=== PATIENT | female | born 2000 ===

== ENCOUNTER 2022-11-14 16:03 | Emergency (ER) | payer OTHER ==
[2022-11-14 18:01] LABS: ESTIMATED GFR 125 mL/min (>60)
[2022-11-14 18:45] LABS: ACETAMINOPHEN < 2 ug/mL (<2)
== END 2022-11-14 18:15 | disposition left against medical advice (07) ==
LOC: FB.ED 16:03
DX: F29 Unspecified psychosis not due to a substance or known physiological condition (principal); R45.851 Suicidal ideations; Z88.1 Allergy status to other antibiotic agents
CPT/HCPCS: 36415; 80053; 80143; 80179; 80307; 81001; 81025; 84443; 85025; 99283; 99284

== ENCOUNTER 2023-10-19 21:30 | Emergency (ER) | payer OTHER ==
[2023-10-19] MEDS ORDERED: Sodium Chloride 0.9% 10 ML Syringe FLUSH PRN (22:08)
[2023-10-19 22:19] LABS: BASOPHILS PERCENT AUTO 0.4 % (0.2-1.5); EOSINOPHILS PERCENT AUTO 0.4 % (0.6-8.1); HEMATOCRIT 43.1 % (34.2-48.2); HEMOGLOBIN 14.6 g/dL (11.4-15.5); LYMPHOCYTES ABSOLUTE AUTO 2.6 x10-3/uL (1.0-4.4); LYMPHOCYTES PERCENT AUTO 21.8 % (18.4-52.1); MEAN CORPUSCULAR HEMOGLOBIN 30.1 pg (23.9-33.9); MEAN CORPUSCULAR VOLUME 88.6 fL (76.7-100.5); MEAN PLATELET VOLUME 8.7 fL (7.1-12.4); MONOCYTES ABSOLUTE AUTO 0.8 x10-3/uL (0.3-1.0); MONOCYTES PERCENT AUTO 6.9 % (4.4-15.7); NEUTROPHILS ABSOLUTE AUTO 8.3 x10-3/uL (1.5-6.3); NEUTROPHILS PERCENT AUTO 70.5 % (30.8-76.2); PLATELET COUNT,PLT 244 x10(3)uL (151-488); RED BLOOD CELL COUNT 4.87 x10(6)uL (3.60-5.20); RED CELL DISTRIBUTION WIDTH 12.8 % (12.3-16.5); WHITE BLOOD CELL COUNT,WBC 11.8 x10-3/uL (3.0-10.3)
[2023-10-19 22:22] LABS: BASE EXCESS VENOUS,POC -3 mmol/L (-2 - 3+); PCO2 VENOUS,POC 37 mmHg (41-51); PH VENOUS,POC 7.37 pH Units (7.32-7.43)
[2023-10-19 22:24] LABS: BLOOD UREA NITROGEN,BUN 11 mg/dL (7-18); BUN/CREATININE RATIO 18.3 (9-20); CALCIUM 9.8 mg/dL (8.6-10.2); CARBON DIOXIDE,CO2 25 mmol/L (21-32); CHLORIDE,CL 102 mmol/L (100-110); CREATININE 0.6 mg/dL (0.55-1.02); ESTIMATED GFR 128 mL/min (>60); GLUCOSE RANDOM 106 mg/dL (80-116); POTASSIUM,K 3.3 mmol/L (3.5-5.3); SODIUM,NA 139 mmol/L (135-145)
[2023-10-19 22:35] LABS: BILIRUBIN,URINE NEGATIVE (NEGATIVE); GLUCOSE,URINE NORMAL (NORMAL); KETONES,URINE NEGATIVE (NEGATIVE); LEUKOCYTE ESTERASE,URINE NEGATIVE (NEGATIVE); NITRITE,URINE NEGATIVE (NEGATIVE); OCCULT BLOOD,URINE NEGATIVE (NEGATIVE); PROTEIN,URINE NEGATIVE (NEGATIVE); UROBILINOGEN,URINE NORMAL (NEGATIVE)
[2023-10-19 22:39] LABS: AMORPHOUS SEDIMENT,URINE FEW; AMPHETAMINES SCREEN, URINE NEGATIVE (NEGATIVE); APPEARANCE,URINE CLEAR (CLEAR); BACTERIA,URINE RARE (NS); BARBITURATE SCREEN,URINE POSITIVE (NEGATIVE); BENZODIAZEPINES SCREEN,URINE NEGATIVE (NEGATIVE); COLOR,URINE YELLOW (YELLOW); METHADONE SCREEN, URINE NEGATIVE (NEGATIVE); METHAMPHETAMINE SCREEN, URINE NEGATIVE (NEGATIVE); OXYCODONE SCREEN,URINE NEGATIVE (NEGATIVE); RBC,URINE 0-5 (0-5); SQUAMOUS EPITHELIAL CELLS,UR OCCASIONAL (NS,R,O); THC SCREEN,URINE POSITIVE (NEGATIVE); WBC,URINE 0-5 (0-5)
[2023-10-19 22:39] LABS: A/G RATIO 1.1; ALANINE AMINOTRANSFERASE,ALT 77 U/L (12-36); ALBUMIN 4.5 g/dL (3.5-5.2); ALKALINE PHOSPHATASE 66 IU/L (56-112); ASPARTATE AMNIOTRANSFERASE,AST 70 IU/L (5-25); MAGNESIUM 2.3 mg/dL (1.8-2.5); PROTEIN TOTAL,TP 8.5 g/dL (6.0-8.0); SALICYLATE 2.6 mg/dL (<2.8)
[2023-10-19 22:40] LABS: BUPRENORPHINE SCREEN,URINE NEGATIVE (NEGATIVE)
[2023-10-19 22:42] LABS: ACETAMINOPHEN 52 ug/mL (<2)
[2023-10-19] MEDS ORDERED: Sodium Chloride 0.9% 1,000 ML IV SCH (23:00)
[2023-10-19 23:07] LABS: INR 0.98 (1.00-1.24); PROTHROMBIN TIME 10.2 sec (9.0-11.1)
[2023-10-20] MEDS ORDERED: SODIUM CHLORIDE 0.9% IV ONE (00:15)
[2023-10-20] MEDS ORDERED: ACETYLCYSTEINE IV ONE (00:15)
[2023-10-20] MEDS: Sodium Chloride 0.9% 1,000 ML IV ONE (01:00)
[2023-10-20] MEDS: ACETYLCYSTEINE IV ONE ×4 (01:55→03:34)
[2023-10-20] MEDS: SODIUM CHLORIDE 0.9% IV ONE ×4 (01:55→03:34)
== END 2023-10-20 03:25 ==
LOC: MERGE 21:30 → FB.ED 21:30
DX: T39.1X2A Poisoning by 4-Aminophenol derivatives, intentional self-harm, initial encounter (principal); G93.40 Encephalopathy, unspecified; Z88.1 Allergy status to other antibiotic agents; Z79.899 Other long term (current) drug therapy
CPT/HCPCS: 36415; 51702; 80053; 80143; 80179; 80307; 81001; 81025; 83605; 83735; 84443; 85025; 85610; 93005; 93010; 96361; 96365; 96366; 99285; 99285-25; J0132; J7030; J7040; U0002